=== PATIENT | male | born 1965 | race Caucasian/White ===

== ENCOUNTER 2024-04-12 19:07 | Inpatient (IN) | payer MEDICAID, SELFPAY ==
[~2024-04-12] VITALS: Ht 175.3 cm; Wt 83.1 kg
[2024-04-12 19:58] LABS: HEMATOCRIT 29.6 % (42.0-52.0); HEMOGLOBIN 10.3 g/dl (13.5-17.5); MEAN CORPUSCULAR HEMOGLOBIN 29.8 pg (27.0-33.0); MEAN CORPUSCULAR HGB CONC 34.8 g/dl (32.0-36.5); MEAN CORPUSCULAR VOLUME 85.5 fl (80.0-96.0); PLATELET COUNT, AUTOMATED 202 10^3/uL (150-450); RED BLOOD COUNT 3.46 10^6/uL (4.30-6.10); WHITE BLOOD COUNT 18.7 10^3/uL (4.0-10.0)
[2024-04-12 20:21] LABS: ETHYL ALCOHOL (ETHANOL) < 0.003 % (0.000-0.010)
[2024-04-12 20:23] LABS: ALBUMIN 3.4 G/DL (3.2-5.2); ALKALINE PHOSPHATASE 91 U/L (40-129); ALT/SGPT 21 U/L (7.0-40); AST/SGOT 21 U/L (<34); BILIRUBIN,DIRECT 0.2 MG/DL (<0.4); BILIRUBIN,TOTAL 0.5 MG/DL (0.3-1.2); BLOOD UREA NITROGEN 50 MG/DL (9-23); CALCIUM LEVEL 9.1 MG/DL (8.5-10.1); CARBON DIOXIDE LEVEL 26 MMOL/L (20-31); CHLORIDE LEVEL 102 MMOL/L (98-107); CREATININE FOR GFR 4.12 MG/DL (0.70-1.30); GLOMERULAR FILTRATION RATE 15.9 (>56); GLUCOSE, FASTING 116 MG/DL (60-100); SALICYLATE LEVEL < 3.0 MG/DL (<30); SODIUM LEVEL 136 MMOL/L (136-145); TOTAL PROTEIN 6.4 G/DL (5.7-8.2)
[2024-04-12 20:25] LABS: THYROID STIMULATING HORMONE 0.779 uIU/ML (0.55-4.78)
[2024-04-12] MEDS: LIDOCAINE 2% MDV 20ML VIAL SC ONE (20:25)
[2024-04-12 21:23] LABS: AMPHETAMINES LEVEL URINE NEGATIVE (NEGATIVE); BENZODIAZEPINES URINE NEGATIVE (NEGATIVE)
[2024-04-12 21:24] LABS: BARBITURATES URINE NEGATIVE (NEGATIVE); COCAINE METABOLITE URINE NEGATIVE (NEGATIVE); METHADONE URINE NEGATIVE (NEGATIVE); OPIATES URINE NEGATIVE (NEGATIVE); PHENCYCLIDINE URINE NEGATIVE (NEGATIVE)
[2024-04-12 21:27] LABS: CANNABINOIDS URINE POSITIVE (NEGATIVE)
[2024-04-12] MEDS ORDERED: HOME MED LIST COMPLETE! XX SCH ×2 (21:55→22:05)
[2024-04-12] MEDS: NS (Normal Saline) 0.9% 1,000 ML IV ONE (22:00)
[2024-04-12 22:33] LABS: APPEARANCE, URINE CLOUDY (CLEAR); BACTERIA, URINE AUTO NEGATIVE (NEGATIVE); BILIRUBIN, URINE AUTO NEGATIVE (NEGATIVE); BLOOD, URINE BLOOD NEGATIVE (NEGATIVE); COLOR, URINE AMBER (YELLOW); GLUCOSE, URINE (UA) AUTO NEGATIVE (NEGATIVE); GRANULAR CAST, URINE AUTO 18 /LPF; KETONE, URINE AUTO TRACE mg/dL (NEGATIVE); LEUKOCYTE ESTERASE, URINE AUTO 1+ (NEGATIVE); MUCUS, URINE SMALL (NEGATIVE); NITRITE, URINE AUTO NEGATIVE (NEGATIVE); PROTEIN, URINE AUTO 1+ mg/dL (NEGATIVE); RBC, URINE AUTO 3 /HPF (0-3); SPECIFIC GRAVITY URINE AUTO 1.019 (1.002-1.035); SQUAMOUS EPITHELIAL CELL UR AU 2 /HPF (0-6); WBC, URINE AUTO 14 /HPF (0-3)
[2024-04-12 23:05] LABS: SODIUM,RANDOM URINE < 10 MMOL/L
[2024-04-12] MEDS: NS (Normal Saline) 0.9% 1,000 ML IV SCH (23:40)
[2024-04-13 01:02] LABS: URIC ACID 6.7 MG/DL (3.7-9.2)
[2024-04-13 01:05] LABS: CHOLESTEROL RISK RATIO 3.48 (<5); HDL CHOLESTEROL 34.1 MG/DL (>40); LDL CHOLESTEROL 59.7 MG/DL (<100); NON-HDL-C 84.9 MG/DL; PHOSPHORUS LEVEL 5.2 MG/DL (2.5-4.9)
[2024-04-13] MEDS: LORazepam 0.5 MG TAB PO ONE (01:10)
[2024-04-13 01:38] LABS: TOTAL PROTEIN,RANDOM URINE 38.3 MG/DL (0.0-14.0)
[2024-04-13 07:12] LABS: HEMOGLOBIN 8.9 g/dl (13.5-17.5); MEAN CORPUSCULAR HEMOGLOBIN 30.3 pg (27.0-33.0); MEAN CORPUSCULAR HGB CONC 35.6 g/dl (32.0-36.5); PLATELET COUNT, AUTOMATED 144 10^3/uL (150-450); RED BLOOD COUNT 2.94 10^6/uL (4.30-6.10); WHITE BLOOD COUNT 12.5 10^3/uL (4.0-10.0)
[2024-04-13 07:29] LABS: BASO # 0.1 10^3/uL (0.0-0.2); BASO % 0.6 % (0.0-1.0); EOS # 0.1 10^3/uL (0.0-0.5); EOS % 1.1 % (0.0-3.0); LYMPH # 3.2 10^3/uL (1.5-5.0); LYMPH % 25.3 % (24.0-44.0); MONO # 1.6 10^3/uL (0.0-0.8); NEUTROPHILS # 7.4 10^3/uL (1.5-8.5); NEUTROPHILS % 59.6 % (36.0-66.0)
[2024-04-13 07:39] LABS: CALCIUM LEVEL 8.2 MG/DL (8.5-10.1); CREATININE FOR GFR 2.22 MG/DL (0.70-1.30); GLOMERULAR FILTRATION RATE 32.5 (>56); POTASSIUM SERUM 4.6 MMOL/L (3.5-5.1)
[2024-04-13] MEDS: NS (Normal Saline) 0.9% 1,000 ML IV SCH (07:50)
[2024-04-13 07:51] LABS: PROCALCITONIN 0.3 ng/ml
[2024-04-13 12:14] LABS: PERCENT SATURATION 20.6 % (19.7-50.0)
[2024-04-14 06:36] LABS: Estimated Ave Glu(eAG) 4.9 mmol/L; Hemoglobin A1c 4.7 (<5.7)
[2024-04-14 06:46] LABS: BASO # 0.1 10^3/uL (0.0-0.2); EOS # 0.2 10^3/uL (0.0-0.5); HEMATOCRIT 24.3 % (42.0-52.0); HEMOGLOBIN 8.5 g/dl (13.5-17.5); LYMPH # 2.1 10^3/uL (1.5-5.0); LYMPH % 24.8 % (24.0-44.0); MEAN CORPUSCULAR HEMOGLOBIN 30.5 pg (27.0-33.0); MEAN CORPUSCULAR VOLUME 87.1 fl (80.0-96.0); MONO % 12.2 % (2.0-8.0); NEUTROPHILS % 59.6 % (36.0-66.0); PLATELET COUNT, AUTOMATED 140 10^3/uL (150-450); RED BLOOD COUNT 2.79 10^6/uL (4.30-6.10); WHITE BLOOD COUNT 8.3 10^3/uL (4.0-10.0)
[2024-04-14 07:17] LABS: ALBUMIN 2.9 G/DL (3.2-5.2); BLOOD UREA NITROGEN 21 MG/DL (9-23); CALCIUM LEVEL 8.3 MG/DL (8.5-10.1); CARBON DIOXIDE LEVEL 28 MMOL/L (20-31); CHLORIDE LEVEL 107 MMOL/L (98-107); CREATININE FOR GFR 0.78 MG/DL (0.70-1.30); GLOMERULAR FILTRATION RATE > 60.0 (>56); GLUCOSE, FASTING 110 MG/DL (60-100); PHOSPHORUS LEVEL 2.4 MG/DL (2.5-4.9); POTASSIUM SERUM 4.8 MMOL/L (3.5-5.1); SODIUM LEVEL 139 MMOL/L (136-145)
[2024-04-14 12:46] VITALS: BP 121/72; TEMP 97.6; O2SAT 98
[2024-04-14 17:05] VITALS: BP 134/66; TEMP 96.6; O2SAT 100
[2024-04-15 08:18] LABS: BASO # 0.1 10^3/uL (0.0-0.2); BASO % 1.1 % (0.0-1.0); EOS # 0.2 10^3/uL (0.0-0.5); EOS % 2.5 % (0.0-3.0); HEMATOCRIT 28.4 % (42.0-52.0); HEMOGLOBIN 9.7 g/dl (13.5-17.5); LYMPH # 1.4 10^3/uL (1.5-5.0); LYMPH % 22.1 % (24.0-44.0); MEAN CORPUSCULAR HGB CONC 34.2 g/dl (32.0-36.5); MEAN CORPUSCULAR VOLUME 87.9 fl (80.0-96.0); MONO # 0.7 10^3/uL (0.0-0.8); MONO % 11.1 % (2.0-8.0); NEUTROPHILS % 62.9 % (36.0-66.0); PLATELET COUNT, AUTOMATED 158 10^3/uL (150-450); RED BLOOD COUNT 3.23 10^6/uL (4.30-6.10); WHITE BLOOD COUNT 6.3 10^3/uL (4.0-10.0)
[2024-04-15 08:49] LABS: ALBUMIN 3.3 G/DL (3.2-5.2); BLOOD UREA NITROGEN 12 MG/DL (9-23); CALCIUM LEVEL 9.2 MG/DL (8.5-10.1); CARBON DIOXIDE LEVEL 30 MMOL/L (20-31); CHLORIDE LEVEL 106 MMOL/L (98-107); CREATININE FOR GFR 0.64 MG/DL (0.70-1.30); GLOMERULAR FILTRATION RATE > 60.0 (>56); GLUCOSE, FASTING 105 MG/DL (60-100); MAGNESIUM LEVEL 1.8 MG/DL (1.8-2.4); POTASSIUM SERUM 4.1 MMOL/L (3.5-5.1); SODIUM LEVEL 141 MMOL/L (136-145)
== END 2024-04-14 17:10 | DRG 469 ==
LOC: M ED 19:07 → M ED INP 04-13 00:14
PROVIDERS: ADMIT Student in an Organized Health Care Education/Training Program; ATTEND Student in an Organized Health Care Education/Training Program
DX: N17.9 Acute kidney failure, unspecified (principal); E11.9 Type 2 diabetes mellitus without complications; D64.9 Anemia, unspecified; F39 Unspecified mood [affective] disorder; E86.0 Dehydration; F17.210 Nicotine dependence, cigarettes, uncomplicated; I83.90 Asymptomatic varicose veins of unspecified lower extremity; R80.9 Proteinuria, unspecified; T14.91XA Suicide attempt, initial encounter; Z88.8 Allergy status to other drugs, medicaments and biological substances

== ENCOUNTER 2024-04-14 15:49 | Inpatient (IN) | payer MEDICAID, SELFPAY ==
[~2024-04-14] VITALS: Ht 175.3 cm; Wt 83.1 kg
[2024-04-14] MEDS ORDERED: IBUPROFEN 400MG TAB PO PRN (15:55)
[2024-04-14] MEDS ORDERED: MOM 30ML SUSPENSION UDC PO PRN (15:55)
[2024-04-14] MEDS ORDERED: MAALOX 30 ML SUSP *UDC PO PRN (15:55)
[2024-04-14] MEDS ORDERED: ACETAMINOPHEN 325 MG TAB PO PRN (15:55)
[2024-04-14] MEDS: diphenhydrAMINE 25MG CAP PO PRN (20:27)
[2024-04-14] MEDS: traZODone 50 MG TAB PO PRN (20:27)
[2024-04-15] MEDS: ESCITALOPRAM OXALATE 10 MG TAB (LEXAPRO) PO SCH (10:03)
[2024-04-15 15:41] VITALS: BP 176/80; TEMP 98.1; O2SAT 100
[2024-04-16 06:54] VITALS: BP 156/92; TEMP 98.4; O2SAT 99
[2024-04-16 14:45] VITALS: BP 168/80; TEMP 98.3; O2SAT 100
[2024-04-17 06:23] VITALS: BP 148/86; TEMP 97.9; O2SAT 99
[2024-04-17 15:13] VITALS: BP 157/78; TEMP 98.4; O2SAT 100
[2024-04-18 06:31] VITALS: BP 139/87; TEMP 98.2; O2SAT 100
[2024-04-18 15:37] VITALS: BP 162/80; TEMP 98.6; O2SAT 99
[2024-04-18 18:56] VITALS: BP 164/92
[2024-04-18] MEDS: PROPRANOLOL 10 MG TAB PO ONE (19:12)
[2024-04-19 06:41] VITALS: BP 160/94; TEMP 97.8; O2SAT 100
[2024-04-19 15:39] VITALS: BP 146/80; TEMP 98.7; O2SAT 100
[2024-04-20 06:25] VITALS: BP 155/83; TEMP 97.4; O2SAT 99
[2024-04-20 08:04] VITALS: BP 172/80
[2024-04-20 08:06] VITALS: BP 172/80
[2024-04-20] MEDS ORDERED: AMLO25TA PO (12:12)
[2024-04-20] MEDS ORDERED: LEXA1TAB PO (12:12)
[2024-04-20] MEDS ORDERED: TRAZ-252 PO (12:12)
== END 2024-04-20 15:31 | disposition home or self-care (01) | DRG 754 ==
LOC: M PSY 17:10
PROVIDERS: ADMIT Psychiatry & Neurology Psychiatry; ATTEND Psychiatry & Neurology Psychiatry
DX: F32.A Depression, unspecified (principal); E11.9 Type 2 diabetes mellitus without complications; D64.9 Anemia, unspecified; F17.210 Nicotine dependence, cigarettes, uncomplicated; Z88.8 Allergy status to other drugs, medicaments and biological substances; Z91.51 Personal history of suicidal behavior; Z56.0 Unemployment, unspecified; F32.9 Major depressive disorder, single episode, unspecified

== ENCOUNTER → 2024-05-21 | Outpatient (REF) | payer OTHER ==
[~2024-05-21] MED LIST: AMLO25TA PO; LEXA1TAB PO; TRAZ-252 PO
[2024-05-21 17:28] LABS: BASO # 0.1 10^3/uL (0.0-0.2); BASO % 1.9 % (0.0-1.0); EOS # 0.1 10^3/uL (0.0-0.5); EOS % 1.7 % (0.0-3.0); HEMATOCRIT 36.8 % (42.0-52.0); HEMOGLOBIN 11.8 g/dl (13.5-17.5); LYMPH # 1.1 10^3/uL (1.5-5.0); LYMPH % 24.4 % (24.0-44.0); MEAN CORPUSCULAR HEMOGLOBIN 25.3 pg (27.0-33.0); MEAN CORPUSCULAR HGB CONC 32.1 g/dl (32.0-36.5); MONO # 0.5 10^3/uL (0.0-0.8); MONO % 11.7 % (2.0-8.0); NEUTROPHILS # 2.8 10^3/uL (1.5-8.5); NEUTROPHILS % 60.1 % (36.0-66.0); PLATELET COUNT, AUTOMATED 154 10^3/uL (150-450); RED BLOOD COUNT 4.66 10^6/uL (4.30-6.10); WHITE BLOOD COUNT 4.6 10^3/uL (4.0-10.0)
[2024-05-21 17:53] LABS: PSA SCREENING 1.34 NG/ML (< 4.00)
[2024-05-21 17:56] LABS: FERRITIN 18.2 NG/ML (10.5-307.3)
[2024-05-21 17:57] LABS: FOLATE 11.1 NG/ML (>5.4)
[2024-05-21 18:02] LABS: ALBUMIN 3.6 G/DL (3.2-5.2); ALKALINE PHOSPHATASE 115 U/L (40-129); ALT/SGPT 18 U/L (7.0-40); AST/SGOT 19 U/L (<34); BILIRUBIN,TOTAL 0.6 MG/DL (0.3-1.2); BLOOD UREA NITROGEN 11 MG/DL (9-23); CALCIUM LEVEL 8.9 MG/DL (8.5-10.1); CARBON DIOXIDE LEVEL 27 MMOL/L (20-31); CHLORIDE LEVEL 109 MMOL/L (98-107); CREATININE FOR GFR 0.67 MG/DL (0.70-1.30); GLOMERULAR FILTRATION RATE > 60.0 (>56); GLUCOSE, FASTING 77 MG/DL (60-100); IRON (FE) 22 UG/DL (65-175); PERCENT SATURATION 6.2 % (19.7-50.0); POTASSIUM SERUM 4.2 MMOL/L (3.5-5.1); SODIUM LEVEL 138 MMOL/L (136-145); TOTAL IRON BINDING CAPACITY 356 UG/DL (250-425); TOTAL PROTEIN 6.9 G/DL (5.7-8.2); VITAMIN B12 LEVEL 525 PG/ML (211-911)
== END ==
LOC: M SFHCCAPE 08:03
PROVIDERS: ATTEND Physician Assistant Medical
DX: D64.9 Anemia, unspecified (principal); E11.69 Type 2 diabetes mellitus with other specified complication; Z12.5 Encounter for screening for malignant neoplasm of prostate

== ENCOUNTER → 2024-07-09 | Outpatient (REF) | payer OTHER ==
[~2024-07-09] MED LIST changes: +FERR325T19 PO; +LOSA50TA5 PO
[2024-07-09 18:53] LABS: BASO # 0.1 10^3/uL (0.0-0.2); BASO % 1.5 % (0.0-1.0); EOS # 0.1 10^3/uL (0.0-0.5); EOS % 1.3 % (0.0-3.0); HEMATOCRIT 43.8 % (42.0-52.0); LYMPH # 1.1 10^3/uL (1.5-5.0); LYMPH % 15.1 % (24.0-44.0); MEAN CORPUSCULAR HEMOGLOBIN 23.9 pg (27.0-33.0); MEAN CORPUSCULAR VOLUME 74.9 fl (80.0-96.0); MONO # 0.8 10^3/uL (0.0-0.8); MONO % 10.6 % (2.0-8.0); NEUTROPHILS # 5.4 10^3/uL (1.5-8.5); NEUTROPHILS % 71.1 % (36.0-66.0); PLATELET COUNT, AUTOMATED 185 10^3/uL (150-450); RED BLOOD COUNT 5.85 10^6/uL (4.30-6.10); WHITE BLOOD COUNT 7.5 10^3/uL (4.0-10.0)
[2024-07-09 18:56] LABS: C REACTIVE PROTEIN QUANTITATIV < 0.50 MG/DL (<1.0)
[2024-07-09 18:57] LABS: BLOOD UREA NITROGEN 12 MG/DL (9-23); CALCIUM LEVEL 8.7 MG/DL (8.5-10.1); CARBON DIOXIDE LEVEL 27 MMOL/L (20-31); CHLORIDE LEVEL 107 MMOL/L (98-107); CREATININE FOR GFR 0.62 MG/DL (0.70-1.30); GLOMERULAR FILTRATION RATE > 60.0 (>56); GLUCOSE, FASTING 86 MG/DL (60-100); POTASSIUM SERUM 4.2 MMOL/L (3.5-5.1); SODIUM LEVEL 139 MMOL/L (136-145)
[2024-07-09 18:58] LABS: ERYTHROCYTE SEDIMENTATION RATE 10 mm/hr (0-20); FERRITIN 25.9 NG/ML (10.5-307.3); IRON (FE) 29 UG/DL (65-175); RHEUMATOID FACTOR QUANT < 3.5 IU/ML (<14)
[2024-07-09 19:01] LABS: URIC ACID 3.1 MG/DL (3.7-9.2)
[2024-07-13 15:47] LABS: ANA SCREEN, IFA NEGATIVE (NEGATIVE)
== END ==
LOC: M SFHCCAPE 10:05
PROVIDERS: ATTEND Physician Assistant Medical
DX: D50.9 Iron deficiency anemia, unspecified (principal); I10 Essential (primary) hypertension; M25.50 Pain in unspecified joint

== ENCOUNTER → 2024-07-15 | Outpatient (CLI) | payer OTHER, MEDICAID ==
[~2024-07-15] MED LIST changes: -FERR325T19 PO; -LOSA50TA5 PO
== END ==
LOC: M WUC 09:55
PROVIDERS: ATTEND Physician Assistant Medical
DX: M19.90 Unspecified osteoarthritis, unspecified site (principal)

== ENCOUNTER → 2024-07-30 | Outpatient (CLI) | payer OTHER | LOC: M RAD 10:11 | PROVIDERS: ATTEND Physician Assistant Medical | DX: F17.210 Nicotine dependence, cigarettes, uncomplicated (principal) ==